=== PATIENT | female | born 1945 | race Caucasian/White ===

== ENCOUNTER 2019-10-25 | Emergency (ER) | payer MEDICARE ==
[2019-10-25] MEDS ORDERED: CHLORTHALIDONE25 MG PO (12:46)
[2019-10-25] MEDS ORDERED: NEXIUM40 M1 PO (12:46)
[2019-10-25] MEDS ORDERED: METOPROL TAR25 MG PO (12:46)
[2019-10-25] MEDS ORDERED: TESSALON PERLE100 MG PO (13:53)
== END 2019-10-25 14:10 | disposition home or self-care (01) ==
DX: R05 Cough (principal); B37.0 Candidal stomatitis; I10 Essential (primary) hypertension

== ENCOUNTER 2019-10-28 | Emergency (ER) | payer MEDICARE ==
[~2019-10-28] MED LIST: CHLORTHALIDONE25 MG PO; METOPROL TAR25 MG PO; NEXIUM40 M1 PO; TESSALON PERLE100 MG PO
[2019-10-28 11:05] LABS: HEMATOCRIT 41.4 % (37.0-47.0); HEMOGLOBIN 14.4 g/dl (12.0-16.0); IMMATURE GRANULOCYTES 0.5 % (0.0-5.0); MEAN CELL VOLUME 86.6 fL CALC (80.0-100.0); MEAN CORPUSCULAR HGB 30.1 pG CALC (26.0-32.0); MEAN CORPUSCULAR HGB CONC 34.8 g/L CALC (32.0-36.0); NEUT# 7.75 thou/uL (2.00-7.15); RED BLOOD COUNT 4.78 mill/uL (4.20-5.60); RED CELL DISTRI WIDTH 12.3 % (11.5-15.5)
[2019-10-28 11:33] LABS: ALBUMIN 4.6 g/dL (3.2-5.0); ALKALINE PHOSPHATASE 101 u/l (38-126); ANION GAP 18 (6-22 (CALC)); BILIRUBIN, TOTAL 0.9 mg/dL (0.0-1.4); BUN 11 mg/dL (8-23); BUN/CREATININE RATIO 13 (12-20 (CALC)); CARBON DIOXIDE 25 mmol/l (22-30); CHLORIDE 85 mmol/l (95-108); CREATININE 0.8 mg/dL (0.5-1.0); GFR > 60 ML/MIN (>=60 (CALC)); GFR FOR AFR.AMER. > 60 ML/MIN (>=60 (CALC)); POTASSIUM 3.9 mmol/l (3.5-5.1); SGOT/AST 25 u/l (9-36); SODIUM 124 mmol/l (137-146)
[2019-10-28 12:28] LABS: URINE BILIRUBIN - DIPSTICK NEGATIVE (NEGATIVE); URINE BLOOD DIPSTICK TRACE-INTACT (NEGATIVE); URINE COLOR YELLOW; URINE GLUCOSE - DIPSTICK NEGATIVE (NEGATIVE); URINE KETONE TRACE mg/dL (NEGATIVE); URINE LEUK ESTERASE NEGATIVE (NEGATIVE); URINE NITRITE - DIPSTICK NEGATIVE (Negative); URINE PROTEIN - DIPSTICK NEGATIVE (NEG-TRACE); URINE SPECIFIC GRAVITY <=1.005; URINE UROBILINOGEN - DIPSTICK 0.2 E.U./dL (0.2)
[2019-10-28] MEDS ORDERED: CODEINE/GUAIFEN1 SOL PO (12:54)
[2019-10-28] MEDS ORDERED: ONDANSETRON4 MG PO (12:54)
== END 2019-10-28 13:27 | disposition home or self-care (01) ==
DX: J40 Bronchitis, not specified as acute or chronic (principal); R11.10 Vomiting, unspecified; E87.1 Hypo-osmolality and hyponatremia